=== PATIENT | male | born 1990 ===

== ENCOUNTER 2022-07-11 10:36 | Outpatient (CLI) | payer OTHER ==
--- NOTE | 2022-07-13 09:41 | MRI Report ---
PROCEDURE: LUMBAR SPINE WO INDICATIONS: LOW BACK PAIN TECHNIQUE: Noncontrast sagittal T1 spin echo and T2 fast echo, sagittal STIR, axial T1 and T2 fast spin echo thr ough the lumbar spine. In cases with scoliosis, additional coronal T2 fast spin echo may be performe d. COMPARISON: None. FINDINGS: Image quality: Excellent. Alignment and Curvature: There is normal bony alignment. Bone Marrow: Marrow is of normal overall signal. No acute vertebral body compression fractures. Spinal Cord: Conus medullaris terminates at the L1 level. Visualized cord demonstrates normal signa l and size. Paraspinous Soft Tissues: No paravertebral masses. T11-T12: Normal in appearance. T12-L1: Normal in appearance. L1-L2: Normal in appearance. L2-L3: Normal in appearance. L3-L4: Short pedicles. Minimal posterior disc bulge. Mild canal stenosis. Canal stenosis. Right for aminal annulus tear associated with mild foraminal disc protrusion. There is moderate right foraminal stenosis. L4-L5: Short pedicles. Disc bulge. Facet hypertrophy. Mild canal stenosis. Moderate right foraminal narrowing with flattening deformity on the exiting right L4 nerve root. Mild to moderate left forami nal narrowing. L5-S1: Mild bilateral facet hypertrophy. No canal stenosis or foraminal stenosis. IMPRESSION: 1. Patient has underlying short pedicles. 2. There is mild central canal stenosis at L3-L4 and L4-L5. 3. At L3-L4, there is a right foraminal annulus tear plus mild foraminal disc protrusion. This can po tentially result in a right L3 radiculitis. Question: Does this patient have right L3 radicular sympt oms? 4. Lower lumbar facet arthropathy. Reviewed by: Charlie Bolivar MD on 07/13/2022 9:39 AM PST Approved by: Charlie Bolivar MD on 07/13/2022 9:39 AM PST Station ID: [id number]
== END 2022-07-11 10:37 | disposition home or self-care (01) ==
LOC: DI 10:36
DX: M48.061 Spinal stenosis, lumbar region without neurogenic claudication (principal); M51.26 Other intervertebral disc displacement, lumbar region; M47.816 Spondylosis without myelopathy or radiculopathy, lumbar region